=== PATIENT | female | born 1960 | race Caucasian/White ===

== ENCOUNTER 2017-11-13 07:00 | Inpatient (IN) | payer OTHER ==
[~2017-11-13] VITALS: Ht 13.5 cm; Wt 90.7 kg
[2017-11-18] MEDS ORDERED: SYNTHROID88 MCG (10:50)
== END 2017-11-30 13:25 | disposition home or self-care (01) | DRG 747 ==
LOC: SURH 11-21 11:00 → OB/GYN 11-27 06:05 → O/R 11-27 06:05 → SURH 11-27 07:00 → OB/GYN 11-27 10:47 → SURH 11-27 11:00 → OB/GYN 11-30 13:25
PROVIDERS: Obstetrics & Gynecology
PROC: 0UL Female Reproductive System, Occlusion (ICD-10-PCS; 2017-11-27)
PROC: 0JQC0ZZ Repair Pelvic Region Subcutaneous Tissue and Fascia, Open Approach (ICD-10-PCS; principal; 2017-11-27 07:00)
PROC: 0JQC0ZZ Repair Pelvic Region Subcutaneous Tissue and Fascia, Open Approach (ICD-10-PCS; 2017-11-28)
DX: N81.3 Complete uterovaginal prolapse (principal); E03.8 Other specified hypothyroidism

== ENCOUNTER 2017-11-13 07:07 | Outpatient (CLI) | payer OTHER | END 2017-11-13 07:17 | disposition home or self-care (01) | LOC: RAD 07:07 | DX: R05 Cough (principal) ==

== ENCOUNTER → 2017-11-13 08:27 | Outpatient (CLI) | payer OTHER | END | disposition home or self-care (01) | LOC: EKG 08:27 | DX: R07.9 Chest pain, unspecified (principal) ==

== ENCOUNTER 2020-10-24 11:26 | Outpatient (CLI) | payer OTHER ==
[~2020-10-24 11:26] MED LIST: SYNTHROID88 MCG
== END 2020-10-24 11:37 | disposition home or self-care (01) ==
LOC: MAMO-SONO 11:26
PROVIDERS: ATTEND Obstetrics & Gynecology
DX: D17.71 Benign lipomatous neoplasm of kidney (principal); Z12.31 Encounter for screening mammogram for malignant neoplasm of breast; N60.11 Diffuse cystic mastopathy of right breast; N64.59 Other signs and symptoms in breast

== ENCOUNTER 2020-10-25 11:47 | Outpatient (CLI) | payer OTHER | END 2020-10-25 16:21 | disposition home or self-care (01) | LOC: OFIC 805 11:47 | PROVIDERS: ATTEND Otolaryngology | DX: K21.9 Gastro-esophageal reflux disease without esophagitis (principal); L30.8 Other specified dermatitis; R13.19 Other dysphagia; R42 Dizziness and giddiness ==

== ENCOUNTER 2020-11-08 08:05 | Outpatient (CLI) | payer OTHER | END 2020-11-08 08:18 | disposition home or self-care (01) | LOC: RAD 08:05 → MAMO-SONO 08:15 → RAD 08:18 → RX STUDY 10:15 → MAMO-SONO 13:15 | PROVIDERS: ATTEND Otolaryngology | DX: E04.2 Nontoxic multinodular goiter (principal); R13.19 Other dysphagia ==

== ENCOUNTER 2020-11-14 09:07 | Outpatient (CLI) | payer OTHER | END 2020-11-14 16:57 | disposition home or self-care (01) | LOC: OFIC 805 09:07 | PROVIDERS: ATTEND Otolaryngology | DX: R13.19 Other dysphagia (principal); K21.9 Gastro-esophageal reflux disease without esophagitis ==

== ENCOUNTER 2021-02-14 10:22 | Outpatient (CLI) | payer OTHER | END 2021-02-14 10:28 | disposition home or self-care (01) | LOC: SONOGRAMA 10:22 | PROVIDERS: ATTEND Physical Medicine & Rehabilitation | DX: G56.02 Carpal tunnel syndrome, left upper limb (principal); M25.532 Pain in left wrist ==

== ENCOUNTER 2021-07-11 10:40 | Outpatient (CLI) | payer OTHER | END 2021-07-11 10:51 | disposition home or self-care (01) | LOC: MRI 10:40 | PROVIDERS: ATTEND Physical Medicine & Rehabilitation | DX: M43.16 Spondylolisthesis, lumbar region (principal); M54.59 Other low back pain | CPT/HCPCS: 72148 ==

== ENCOUNTER 2021-11-07 12:43 | Outpatient (CLI) | payer OTHER | END 2021-11-07 13:10 | disposition home or self-care (01) | LOC: MAMO-SONO 12:43 | PROVIDERS: ATTEND Internal Medicine Cardiovascular Disease | DX: N63.11 Unspecified lump in the right breast, upper outer quadrant (principal) ==